=== PATIENT | male | born 1990 | race African-American/Black ===

== ENCOUNTER → 2018-12-07 05:51 | Day surgery (SDC) | payer OTHER ==
[~2018-12-07 05:51] MED LIST: Buffered Lidocaine 1% SYRIN* 1 ML/SYRINGE INTRADERM ONE; Bupivacaine 0.25% SDV PF* 10 ML VIAL INJ ONE; Dexamethasone IV* 4 MG/ML 1 ML (4 MG) ONE; Famotidine IV* 10 MG/ML 2 ML (20 mg) IV ONE; Famotidine IV* 10 MG/ML 2 ML (20 mg) ONE; HYDROmorphone INJ1* 1 MG/ML SYRINGE ONE; Ketorolac INJ* 30 MG/ML 1 ML VIAL ONE; Lactated Ringers 1000 ML Bag* 1,000 ML IV SCH; Levalbuterol 0.63MG/3ML NEB* UNIT OF USE INH ONE; Lidocaine 1% MPF wEPI 200,000* 30 ML SDV ONE; Lidocaine 2% PF * 5 ML VIAL ONE; Midazolam* 1 MG/ML 5 ML VIAL (5 MG) ONE; Naloxone* 0.4 MG/ML 1 ML VIAL IV PRN; Ondansetron INJ* 2 MG/ML VIAL IV PRN; Ondansetron INJ* 2 MG/ML VIAL ONE; Propofol* 10 MG/ML 20 ML BTL ONE; ceFAZolin 2 GM PREMIX in ORs 2 GM/50 ML BAG IVPB ONE; fentaNYL* 50 MCG/ML 2 ML VIAL (100 MCG VIAL) IV PRN; fentaNYL* 50 MCG/ML 2 ML VIAL (100 MCG VIAL) ONE
[2018-12-07 13:41] VITALS: BP 141/110
--- NOTE | 2018-12-08 13:43 | OP ---
\DATE OF OPERATION: 12/07/18 - [facility] DATE OF : 89 SURGEON: Iftikhar Walton MD. ENVIRONMENTAL HEALTH MANAGER: KESHA Jay. An assistant coach was needed for the entirety of the procedure to aid in position of the arm and retractor. ANESTHESIOLOGIST: Dr. Guidry. ANESTHESIA: Monitored anesthesia care for the first portion of the procedure and then general for the second portion of the procedure. PRE-OP DIAGNOSES: 1. Right long finger flexor tendon adhesions involving A2 sapna area as well as the A4 sapna area. 2. Right A2 sapna incompetence. POST-OP DIAGNOSES: 1. Right long finger flexor tendon adhesions involving A2 sapna area as well as the A4 sapna area. 2. Right A2 sapna incompetence. OPERATIVE PROCEDURES: 1. Right long finger flexor tenolysis involving the palm and all the way up to the distal aspect of the finger. 2. A2 sapna reconstruction, right long finger. 3. Right long finger flexor tendon shortening. INDICATIONS: Sj is 28; he is an inmate. I previously did a single stage grafting for a chronic flexor tendon laceration around the area of the area of the A1 sapna. He stayed in his splint for 2 months postoperatively due to problems getting back for his postop visit with the correctional system. When he came, his finger was stuck. We rehabbed it now extensively. It has been well over a year since the first surgery. He is looking to see if can get some more motion in the finger. He understands the risk of tendon rupture with a flexor tenolysis as well as a risk of recurrence of tendon adhesions and stiffness. He understands he will have to work very diligently to keep his motion and to improve his motion postoperatively. He also understands that he may have to undergo implantation of silicone tendon spacer daquan with subsequent stage 2 flexor tendon reconstruction. ESTIMATED BLOOD LOSS: 25 ml. COMPLICATIONS: None. FINDINGS: See above and below. DESCRIPTION OF PROCEDURE: Sj was seen in the preoperative holding area. The correct site, side, and procedure were identified. We came back to the operating room where the arm was prepped and draped in the usual fashion and a time out was performed. I had infiltrated 0.25% of plain Marcaine around the operative area. I reopened his prior incision, this was extended out over the proximal phalanx to the PIP joint palmarly. Incision was in a Aftab type fashion. Dissection was carried down. The digital neurovascular bundles were identified and protected. It was immediately apparent that the flexion tendon graft had healed nicely. I came distally and it was just stuck in flexor adhesions all around the A1 and A2 sapna areas. I used a tenolysis knife to free this up; however, only a very small remnant of A2 sapna remained and it was of very poor quality. Once I released all adhesion circumferentially, I was able to get good PIP joint motion; however, DIP joint was not moving much. I came distally and extended my Aftab incision down to the DIP joint. I then opened up the A5 sapna. I took some time, ultimately I was able to release extensive adhesions between the flexor tendon and bone distal at the level of the middle phalanx. Once I freed those up, I was able to achieve full motion passively by pulling on the tendon proximally. Additionally, I did come proximally while he I was doing the tenolysis and I reopened his distal formed wound and I released any adhesions around the tendons at the level of the distal forearm. The tendon looks like it had healed very nicely there. After I completed the tenolysis, finger was coming down nicely; however, there simply was not enough excursion to bring the finger down into full flexion like the adjacent fingers that were sitting in the normal cascade. It was sitting much more extended than the other fingers, but when I pulled on the tendon, it would come down into full flexion. I therefore decided to shorten the tendon a little bit. I went ahead and released the tendon in the mid palm in a small stepcut-type fashion. I then weaved the ends of my tendon together in a Pulvertaft fashion and secured those with multiple 3-0 Ethibond sutures. After I had shortened the tendon a bit, the finger was seen slightly more flexed than the adjacent fingers and in a normal cascade. After this was done, I had already let the tourniquet down and he had regained his motion, so I went ahead and asked him to flex and extend the fingers. He was able to do that and it came down nicely until the last few fibers of the A2 sapna went ahead and gave away. This was not surprising given that there was really only a little bit left. I therefore decided to harvest palmaris longus on the contralateral side due to the fact that we had already used on the same side. I went to the contralateral side, the arm was already prepped and draped. I placed on Esmarch tourniquet proximally. I made a 1-cm transverse incision over the distal palmaris longus tendon. This was delivered up into the wound whipped stitch into the end of the tendon and then I released it distally. I placed the end of the tendon through the tendon stripper and then I released entirely the palmaris longus tendon with a tendon stripper. Wound was then irrigated out and closed. The tourniquet was let down. I then came to my tendon graft over to the contralateral side. I freed up the muscular remnants proximally. I had already placed three Prolene sutures around the proximal pharynx, deep to the extensor tendon. I used each Prolene suture to suture shuttle the palmaris longus tendon around the base of the proximal phalanx. Ultimately, I wrapped it around three times. I set the tension, I secured this with multiple 3-0 Ethibond sutures. This brought the tendon in excellent apposition up against the bone. With the A2 sapna reconstruction done, I went ahead and irrigated out the wound. The repairs were all strong enough, I think they will tolerate early motion, so I did not think we need it do a Andreas daquan. I irrigated out the wound. The skin was closed with 4-0 nylon suture. Wounds were dressed with soft dressings and he was taken to the recovery room in stable condition. POSTOPERATIVE PLAN: He is going to remove his dressings in three days and he is going begin gentle flexion and extension actively. He can do some active assist. I asked the facility to perform some physical therapy with him and I am going to see him back in a week. [id number]/[facility] [place] #: [id number] MATHER HOSPITALNathalia
== END | disposition home or self-care (01) ==
LOC: OR 05:51
PROVIDERS: ATTEND Orthopaedic Surgery Hand Surgery
DX: M67.843 Other specified disorders of tendon, right hand (principal); M65.841 Other synovitis and tenosynovitis, right hand; Z47.89 Encounter for other orthopedic aftercare; Z98.890 Other specified postprocedural states; J45.909 Unspecified asthma, uncomplicated
CPT/HCPCS: J0690; J1100; J1170; J1885; J2001; J2250; J2405; J2704; J3010; J3490

== ENCOUNTER 2019-08-26 08:52 | Day surgery (SDC) | payer OTHER ==
[~2019-08-26 08:52] MED LIST changes: -Bupivacaine 0.25% SDV PF* 10 ML VIAL INJ ONE; -Dexamethasone IV* 4 MG/ML 1 ML (4 MG) ONE; -Famotidine IV* 10 MG/ML 2 ML (20 mg) IV ONE; -Famotidine IV* 10 MG/ML 2 ML (20 mg) ONE; -HYDROmorphone INJ1* 1 MG/ML SYRINGE ONE; -Ketorolac INJ* 30 MG/ML 1 ML VIAL ONE; -Levalbuterol 0.63MG/3ML NEB* UNIT OF USE INH ONE; -Lidocaine 1% MPF wEPI 200,000* 30 ML SDV ONE; -Lidocaine 2% PF * 5 ML VIAL ONE; -Midazolam* 1 MG/ML 5 ML VIAL (5 MG) ONE; -Naloxone* 0.4 MG/ML 1 ML VIAL IV PRN; -Ondansetron INJ* 2 MG/ML VIAL IV PRN; -Ondansetron INJ* 2 MG/ML VIAL ONE; -Propofol* 10 MG/ML 20 ML BTL ONE; -ceFAZolin 2 GM PREMIX in ORs 2 GM/50 ML BAG IVPB ONE; -fentaNYL* 50 MCG/ML 2 ML VIAL (100 MCG VIAL) IV PRN; -fentaNYL* 50 MCG/ML 2 ML VIAL (100 MCG VIAL) ONE
[2019-08-26] MEDS ORDERED: ceFAZolin 2 GM PREMIX in ORs 2 GM/50 ML BAG ONE (08:58)
[2019-08-26] MEDS ORDERED: Ondansetron INJ* 2 MG/ML VIAL ONE (09:09)
[2019-08-26] MEDS ORDERED: Propofol* 10 MG/ML 20 ML BTL ONE (09:09)
[2019-08-26] MEDS ORDERED: Glycopyrrolate IV* 0.2 MG/ML 1 ML VIAL ONE (09:09)
[2019-08-26] MEDS ORDERED: Midazolam* 1 MG/ML 2 ML VIAL (2 MG) ONE (09:09)
[2019-08-26] MEDS ORDERED: Dexamethasone IV* 4 MG/ML 1 ML (4 MG) ONE (09:09)
[2019-08-26] MEDS ORDERED: Succinylcholine* 20 MG/ML 10 ML VIAL ONE (09:09)
[2019-08-26] MEDS ORDERED: fentaNYL* 50 MCG/ML 2 ML VIAL (100 MCG VIAL) ONE ×3 (09:09→13:00)
[2019-08-26] MEDS ORDERED: Ketorolac INJ* 30 MG/ML 1 ML VIAL ONE (09:09)
[2019-08-26] MEDS ORDERED: Lidocaine 1% INJ* 10 MG/ML 30 ML SDV ONE (09:21)
[2019-08-26] MEDS ORDERED: Bupivacaine 0.25% SDV* 30 ML ONE (09:21)
[2019-08-26] MEDS ORDERED: oxyCODONE/Acetamin 5/325 MG* TAB PO PRN (10:11)
[2019-08-26] MEDS ORDERED: Naloxone* 0.4 MG/ML 1 ML VIAL IV PRN (10:11)
[2019-08-26] MEDS ORDERED: fentaNYL* 50 MCG/ML 2 ML VIAL (100 MCG VIAL) IV PRN (12:04)
[2019-08-26] MEDS ORDERED: oxyCODONE/Acetamin 5/325 MG* TAB ONE (13:19)
[2019-08-26 13:48] VITALS: BP 148/89
--- NOTE | 2019-08-26 17:16 | OP ---
DATE OF OPERATION: 08/26/19 - [facility] DATE OF : 89 SURGEON: Iftikhar Walton MD. SUPERVISOR PUBLICATIONS PRODUCTION: KESHA Jay. An players assistant was needed for the procedure to aid in positioning of the arm and retraction. ANESTHESIOLOGIST: Dr. Aragon. ANESTHESIA: General. 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 OPERATIVE PROCEDURE: 1. Stage 1 flexor tendon reconstruction with excision of tendon and placement of a silicone Andreas daquan. 2. Right middle finger A2 sapna reconstruction with split flexor carpi radialis tendon graft. INDICATIONS: Sj had the injury years ago. It was near the distal aspect of the palm. I tried a single stage grafting. I then took him back for flexor tendon tenolysis and tried immediate motion. I had at that time used some tendon graft to create more of a robust A2 sapna. He just developed adhesions again. I told him at this point we just need to try to do a 2-stage flexor tendon reconstruction. He understands that he may end up with a stiff finger or the flexor tendon reconstruction might fail. We did talk about the option of a fusion. He wants to try this first. He understands the need for a totally supple finger with regards to passive range of motion, again the chance of failure and that his finger would not work despite doing these surgeries. He wants to proceed. ESTIMATED BLOOD LOSS: 5 mL. COMPLICATIONS: None. FINDINGS: See above and below. DESCRIPTION OF PROCEDURE: Mr. Hilton was seen in the preoperative holding area. The correct site, side, and procedures were identified. We came back to the operating room, the arm was prepped and draped in the usual fashion, and time-out was performed. I reopened his prior Aftab incision from the distal aspect of the finger all the way down into the palm and full-thickness flaps were very carefully raised to preserve the digital nerves. The remnant of the tendon was visualized and released. There were dense adhesions all about the tendon. The tenolysis knives were used to help free this up down distally near the A4 sapna and to preserve what I had previously reconstructed of the A2 sapna. The tendon was ultimately trimmed just proximal to the A2 sapna and then pulled distally down distal to the A4 sapna. I then trimmed the tendon there. I then turned my attention proximally. I reopened his prior distal forearm wound. I dissected down. I excised a lot of the scar tissue and I noted where I had done the tendon weave before as the Ethibond sutures were easily visible. I was very concerned about safely passing the graft through the carpal tunnel and down into the hand. I really did not want to tether any of the branches of the median nerve or the palmar arch. I decided it was too risky to just pass the tendon passer down through the carpal tunnel. I cannot pull the tendon graft remnant up through the carpal tunnel as it was too densely adhesed. I therefore went ahead and opened up the main incision down into the proximal palm and opened up the carpal tunnel, dissected all the way down to where I saw the median nerve branch into the respective common digital arteries and then I was able to safely pass the tendon passer deep to the arch and to those nerve branches up into the tract in the middle finger. I then pulled the daquan back into the forearm wound. I then passed the daquan down underneath the remnant of the A2 sapna and the A4 sapna and sewed the daquan into place distally with 4-0 Ethibond suture. Proximally, the daquan was trimmed to length and placed deep to the FDS on top of the FDP tendons. Lastly, I decided that we just need more A2 sapna than the A2 sapna that was there where it was way distal. It was a little looser than the daquan. I wanted to try to make a more robust A2 sapna and so I went ahead and used my distal forearm wound and I carefully dissected over preserving the palmar cutaneous branch and was able to open up the FCR tendon sheath. I made a longitudinal split about 25% of the tendon. I passed a 26-gauge wire through the tendon split. I then made 2 more 1 cm incisions proximally, one in the scar that he had on the forearm and another one even more proximal to that. Sheath was released along the course of the FCR tendon. I then pulled the 26-gauge wire under the skin with a Jessica clamp up into the most proximal wound, splitting about 25% of the tendon off. It was released distally and proximally. I then placed a whipstitch in one end of the tendon with some 4-0 Ethibond suture. I had previously wrapped an 0 Prolene suture right around the bone staying deep to the extensor tendon 3 times. I was able to use that Prolene suture to then pass my tendon graft around the bone and the Andreas daquan 3 times. I set maximum tension as I secured the A2 sapna reconstruction with multiple 4-0 [id number] Ethibond sutures. The sapna was placed as far proximal as I could possibly get it. At this point, things were looking good. I could not improve the sapna system anymore. The tendon graft was nicely in place. I irrigated out the wound. All the wounds were closed with 4-0 nylon suture. The wounds were dressed and a short- arm splint out to the fingertips was applied in a protected position. He was taken to the recovery room in stable condition. [id number]/[facility] #: [id number] MACKENZIE
== END 2019-08-26 13:58 ==
LOC: OREAST 08:52
PROVIDERS: ATTEND Orthopaedic Surgery Hand Surgery
DX: S66.122D Laceration of flexor muscle, fascia and tendon of right middle finger at wrist and hand level, subsequent encounter (principal); X58.XXXD Exposure to other specified factors, subsequent encounter; Y92.9 Unspecified place or not applicable; J45.909 Unspecified asthma, uncomplicated
CPT/HCPCS: 88304; A9270-GY; C1713; J0330; J0690; J1100; J1885; J2250; J2405; J2704; J3010; J3490